=== PATIENT | female | born 1975 | race Caucasian/White ===

== ENCOUNTER → 2020-07-09 | Outpatient (CLI) | payer OTHER ==
[~2020-07-09] MED LIST: LIDOCAINE VISC 2% SOLN 15 ML UDC ONE
== END ==
LOC: WCC 13:02
PROVIDERS: ATTEND Family Medicine Adult Medicine
DX: L95.0 Livedoid vasculitis (principal); S21.209A Unspecified open wound of unspecified back wall of thorax without penetration into thoracic cavity, initial encounter; S81.802A Unspecified open wound, left lower leg, initial encounter; S81.801A Unspecified open wound, right lower leg, initial encounter; K76.9 Liver disease, unspecified; L88 Pyoderma gangrenosum; M32.10 Systemic lupus erythematosus, organ or system involvement unspecified; E66.3 Overweight
CPT/HCPCS: 87071; 87075; 87205

== ENCOUNTER → 2020-07-21 | Outpatient (CLI) | payer OTHER | LOC: WCC 15:30 | PROVIDERS: ATTEND Family Medicine Adult Medicine | DX: I87.311 Chronic venous hypertension (idiopathic) with ulcer of right lower extremity (principal); I87.312 Chronic venous hypertension (idiopathic) with ulcer of left lower extremity; L97.821 Non-pressure chronic ulcer of other part of left lower leg limited to breakdown of skin; L97.811 Non-pressure chronic ulcer of other part of right lower leg limited to breakdown of skin; S81.802A Unspecified open wound, left lower leg, initial encounter; S31.000A Unspecified open wound of lower back and pelvis without penetration into retroperitoneum, initial encounter; I87.2 Venous insufficiency (chronic) (peripheral); R60.0 Localized edema; L95.0 Livedoid vasculitis; K76.9 Liver disease, unspecified; M32.10 Systemic lupus erythematosus, organ or system involvement unspecified; L88 Pyoderma gangrenosum; E66.3 Overweight ==

== ENCOUNTER → 2020-07-30 | Outpatient (CLI) | payer OTHER ==
[~2020-07-30] MED LIST changes: +MINERAL OIL/PETROLAT/GLYCERI 6OZ BTL ONE; +TRIAMCINOLONE ACET 0.1% CREAM 15 GM TUBE ONE
== END ==
LOC: WCC 14:42
PROVIDERS: ATTEND Family Medicine Adult Medicine
DX: I87.311 Chronic venous hypertension (idiopathic) with ulcer of right lower extremity (principal); I87.312 Chronic venous hypertension (idiopathic) with ulcer of left lower extremity; L97.811 Non-pressure chronic ulcer of other part of right lower leg limited to breakdown of skin; L97.821 Non-pressure chronic ulcer of other part of left lower leg limited to breakdown of skin; S31.000A Unspecified open wound of lower back and pelvis without penetration into retroperitoneum, initial encounter; S81.802A Unspecified open wound, left lower leg, initial encounter; I87.2 Venous insufficiency (chronic) (peripheral); R60.0 Localized edema; L95.0 Livedoid vasculitis; L88 Pyoderma gangrenosum; K76.9 Liver disease, unspecified; M32.10 Systemic lupus erythematosus, organ or system involvement unspecified; E66.3 Overweight
CPT/HCPCS: 87071; 87075; 87205

== ENCOUNTER → 2020-08-06 | Outpatient (CLI) | payer OTHER | LOC: WCC 08:26 | PROVIDERS: ATTEND Family Medicine Adult Medicine | DX: I87.311 Chronic venous hypertension (idiopathic) with ulcer of right lower extremity (principal); I87.312 Chronic venous hypertension (idiopathic) with ulcer of left lower extremity; L97.811 Non-pressure chronic ulcer of other part of right lower leg limited to breakdown of skin; L97.821 Non-pressure chronic ulcer of other part of left lower leg limited to breakdown of skin; S81.802A Unspecified open wound, left lower leg, initial encounter; S31.000A Unspecified open wound of lower back and pelvis without penetration into retroperitoneum, initial encounter; R60.0 Localized edema; I87.2 Venous insufficiency (chronic) (peripheral); M32.10 Systemic lupus erythematosus, organ or system involvement unspecified; L95.0 Livedoid vasculitis; L88 Pyoderma gangrenosum; K76.9 Liver disease, unspecified; E66.3 Overweight ==

== ENCOUNTER → 2020-08-13 | Outpatient (CLI) | payer OTHER | LOC: WCC 13:20 | PROVIDERS: ATTEND Family Medicine Adult Medicine | DX: I87.311 Chronic venous hypertension (idiopathic) with ulcer of right lower extremity (principal); I87.312 Chronic venous hypertension (idiopathic) with ulcer of left lower extremity; L97.821 Non-pressure chronic ulcer of other part of left lower leg limited to breakdown of skin; L97.811 Non-pressure chronic ulcer of other part of right lower leg limited to breakdown of skin; S31.000A Unspecified open wound of lower back and pelvis without penetration into retroperitoneum, initial encounter; S81.802A Unspecified open wound, left lower leg, initial encounter; I87.2 Venous insufficiency (chronic) (peripheral); R60.0 Localized edema; L95.0 Livedoid vasculitis; L88 Pyoderma gangrenosum; M32.10 Systemic lupus erythematosus, organ or system involvement unspecified; K76.9 Liver disease, unspecified; E66.3 Overweight ==

== ENCOUNTER → 2020-08-20 | Outpatient (CLI) | payer OTHER | LOC: WCC 09:34 | PROVIDERS: ATTEND Family Medicine Adult Medicine | DX: I87.311 Chronic venous hypertension (idiopathic) with ulcer of right lower extremity (principal); I87.312 Chronic venous hypertension (idiopathic) with ulcer of left lower extremity; L97.811 Non-pressure chronic ulcer of other part of right lower leg limited to breakdown of skin; L97.821 Non-pressure chronic ulcer of other part of left lower leg limited to breakdown of skin; S31.000A Unspecified open wound of lower back and pelvis without penetration into retroperitoneum, initial encounter; S81.802A Unspecified open wound, left lower leg, initial encounter; I87.2 Venous insufficiency (chronic) (peripheral); M32.10 Systemic lupus erythematosus, organ or system involvement unspecified; R60.0 Localized edema; L95.0 Livedoid vasculitis; L88 Pyoderma gangrenosum; E66.3 Overweight; K76.9 Liver disease, unspecified ==

== ENCOUNTER → 2020-08-27 | Outpatient (CLI) | payer OTHER ==
[~2020-08-27] MED LIST changes: +MUPIROCIN 2% OINT 22 GM TUBE ONE
== END ==
LOC: WCC 09:30
PROVIDERS: ATTEND Family Medicine Adult Medicine
DX: I87.311 Chronic venous hypertension (idiopathic) with ulcer of right lower extremity (principal); I87.312 Chronic venous hypertension (idiopathic) with ulcer of left lower extremity; I87.332 Chronic venous hypertension (idiopathic) with ulcer and inflammation of left lower extremity; L97.811 Non-pressure chronic ulcer of other part of right lower leg limited to breakdown of skin; L97.821 Non-pressure chronic ulcer of other part of left lower leg limited to breakdown of skin; L97.321 Non-pressure chronic ulcer of left ankle limited to breakdown of skin; S31.000A Unspecified open wound of lower back and pelvis without penetration into retroperitoneum, initial encounter; S81.802A Unspecified open wound, left lower leg, initial encounter; I87.2 Venous insufficiency (chronic) (peripheral); R60.0 Localized edema; L95.0 Livedoid vasculitis; E66.3 Overweight; K76.9 Liver disease, unspecified; L88 Pyoderma gangrenosum; M32.10 Systemic lupus erythematosus, organ or system involvement unspecified

== ENCOUNTER → 2020-09-03 | Outpatient (CLI) | payer OTHER | LOC: WCC 09:01 | PROVIDERS: ATTEND Family Medicine Adult Medicine | DX: I87.311 Chronic venous hypertension (idiopathic) with ulcer of right lower extremity (principal); I87.312 Chronic venous hypertension (idiopathic) with ulcer of left lower extremity; I87.332 Chronic venous hypertension (idiopathic) with ulcer and inflammation of left lower extremity; L97.811 Non-pressure chronic ulcer of other part of right lower leg limited to breakdown of skin; L97.821 Non-pressure chronic ulcer of other part of left lower leg limited to breakdown of skin; L97.321 Non-pressure chronic ulcer of left ankle limited to breakdown of skin; S31.000A Unspecified open wound of lower back and pelvis without penetration into retroperitoneum, initial encounter; S81.802A Unspecified open wound, left lower leg, initial encounter; R60.0 Localized edema; L95.0 Livedoid vasculitis; K76.9 Liver disease, unspecified; L88 Pyoderma gangrenosum; M32.10 Systemic lupus erythematosus, organ or system involvement unspecified; R26.81 Unsteadiness on feet ==

== ENCOUNTER → 2020-09-15 | Outpatient (CLI) | payer OTHER | LOC: WCC 09:28 | PROVIDERS: ATTEND Family Medicine Adult Medicine | DX: I87.311 Chronic venous hypertension (idiopathic) with ulcer of right lower extremity (principal); I87.312 Chronic venous hypertension (idiopathic) with ulcer of left lower extremity; L97.811 Non-pressure chronic ulcer of other part of right lower leg limited to breakdown of skin; L97.821 Non-pressure chronic ulcer of other part of left lower leg limited to breakdown of skin; S31.000A Unspecified open wound of lower back and pelvis without penetration into retroperitoneum, initial encounter; I87.331 Chronic venous hypertension (idiopathic) with ulcer and inflammation of right lower extremity; I87.2 Venous insufficiency (chronic) (peripheral); I89.0 Lymphedema, not elsewhere classified; R60.0 Localized edema; L95.0 Livedoid vasculitis; K76.9 Liver disease, unspecified; L88 Pyoderma gangrenosum; M32.10 Systemic lupus erythematosus, organ or system involvement unspecified; R26.81 Unsteadiness on feet; E66.3 Overweight | CPT/HCPCS: 87071; 87075; 87205 ==

== ENCOUNTER → 2020-09-29 | Outpatient (CLI) | payer OTHER ==
[~2020-09-29] MED LIST changes: -MINERAL OIL/PETROLAT/GLYCERI 6OZ BTL ONE; -TRIAMCINOLONE ACET 0.1% CREAM 15 GM TUBE ONE
== END ==
LOC: WCC 08:58
PROVIDERS: ATTEND Family Medicine Adult Medicine
DX: I87.311 Chronic venous hypertension (idiopathic) with ulcer of right lower extremity (principal); I87.312 Chronic venous hypertension (idiopathic) with ulcer of left lower extremity; I87.331 Chronic venous hypertension (idiopathic) with ulcer and inflammation of right lower extremity; L97.811 Non-pressure chronic ulcer of other part of right lower leg limited to breakdown of skin; L97.821 Non-pressure chronic ulcer of other part of left lower leg limited to breakdown of skin; S31.000A Unspecified open wound of lower back and pelvis without penetration into retroperitoneum, initial encounter; I89.0 Lymphedema, not elsewhere classified; I87.2 Venous insufficiency (chronic) (peripheral); R60.0 Localized edema; K76.9 Liver disease, unspecified; L95.0 Livedoid vasculitis; M32.10 Systemic lupus erythematosus, organ or system involvement unspecified; L88 Pyoderma gangrenosum; R26.81 Unsteadiness on feet; E66.3 Overweight

== ENCOUNTER → 2020-10-08 | Outpatient (CLI) | payer OTHER | LOC: WCC 08:47 | PROVIDERS: ATTEND Family Medicine Adult Medicine | DX: I87.311 Chronic venous hypertension (idiopathic) with ulcer of right lower extremity (principal); I87.312 Chronic venous hypertension (idiopathic) with ulcer of left lower extremity; I87.331 Chronic venous hypertension (idiopathic) with ulcer and inflammation of right lower extremity; L97.811 Non-pressure chronic ulcer of other part of right lower leg limited to breakdown of skin; L97.521 Non-pressure chronic ulcer of other part of left foot limited to breakdown of skin; L97.821 Non-pressure chronic ulcer of other part of left lower leg limited to breakdown of skin; I89.0 Lymphedema, not elsewhere classified; I87.2 Venous insufficiency (chronic) (peripheral); R60.0 Localized edema; M32.10 Systemic lupus erythematosus, organ or system involvement unspecified; K76.9 Liver disease, unspecified; L95.0 Livedoid vasculitis; L88 Pyoderma gangrenosum; E66.3 Overweight; K64.4 Residual hemorrhoidal skin tags; R26.81 Unsteadiness on feet; S31.000A Unspecified open wound of lower back and pelvis without penetration into retroperitoneum, initial encounter | CPT/HCPCS: 87071; 87075; 87205 ==

== ENCOUNTER → 2020-10-22 | Outpatient (CLI) | payer OTHER | LOC: WCC 09:28 | PROVIDERS: ATTEND Family Medicine Adult Medicine | DX: I87.311 Chronic venous hypertension (idiopathic) with ulcer of right lower extremity (principal); M86.172 Other acute osteomyelitis, left ankle and foot; S31.000A Unspecified open wound of lower back and pelvis without penetration into retroperitoneum, initial encounter; I87.312 Chronic venous hypertension (idiopathic) with ulcer of left lower extremity; I87.331 Chronic venous hypertension (idiopathic) with ulcer and inflammation of right lower extremity; L97.811 Non-pressure chronic ulcer of other part of right lower leg limited to breakdown of skin; L97.821 Non-pressure chronic ulcer of other part of left lower leg limited to breakdown of skin; L97.521 Non-pressure chronic ulcer of other part of left foot limited to breakdown of skin; L03.032 Cellulitis of left toe; I89.0 Lymphedema, not elsewhere classified; I87.2 Venous insufficiency (chronic) (peripheral); M89.9 Disorder of bone, unspecified; L95.0 Livedoid vasculitis; R60.0 Localized edema; E66.3 Overweight; K64.4 Residual hemorrhoidal skin tags; K76.9 Liver disease, unspecified; L88 Pyoderma gangrenosum; M32.10 Systemic lupus erythematosus, organ or system involvement unspecified; R26.81 Unsteadiness on feet ==

== ENCOUNTER → 2020-11-05 | Outpatient (CLI) | payer OTHER | LOC: WCC 11:40 | PROVIDERS: ATTEND Family Medicine Adult Medicine | DX: I87.312 Chronic venous hypertension (idiopathic) with ulcer of left lower extremity (principal); I87.331 Chronic venous hypertension (idiopathic) with ulcer and inflammation of right lower extremity; M86.172 Other acute osteomyelitis, left ankle and foot; L97.821 Non-pressure chronic ulcer of other part of left lower leg limited to breakdown of skin; L97.811 Non-pressure chronic ulcer of other part of right lower leg limited to breakdown of skin; S31.000A Unspecified open wound of lower back and pelvis without penetration into retroperitoneum, initial encounter; L03.032 Cellulitis of left toe; I89.0 Lymphedema, not elsewhere classified; L95.0 Livedoid vasculitis; L88 Pyoderma gangrenosum; M89.9 Disorder of bone, unspecified; R60.0 Localized edema; M32.10 Systemic lupus erythematosus, organ or system involvement unspecified; E66.3 Overweight; I87.2 Venous insufficiency (chronic) (peripheral); I87.311 Chronic venous hypertension (idiopathic) with ulcer of right lower extremity; K76.9 Liver disease, unspecified; K64.4 Residual hemorrhoidal skin tags; R26.81 Unsteadiness on feet ==

== ENCOUNTER → 2020-11-10 | Outpatient (CLI) | payer OTHER | LOC: WCC 09:51 | PROVIDERS: ATTEND Family Medicine Adult Medicine | DX: I87.312 Chronic venous hypertension (idiopathic) with ulcer of left lower extremity (principal); I87.331 Chronic venous hypertension (idiopathic) with ulcer and inflammation of right lower extremity; I87.311 Chronic venous hypertension (idiopathic) with ulcer of right lower extremity; M86.172 Other acute osteomyelitis, left ankle and foot; L97.821 Non-pressure chronic ulcer of other part of left lower leg limited to breakdown of skin; L97.811 Non-pressure chronic ulcer of other part of right lower leg limited to breakdown of skin; S31.000A Unspecified open wound of lower back and pelvis without penetration into retroperitoneum, initial encounter; I87.2 Venous insufficiency (chronic) (peripheral); I89.0 Lymphedema, not elsewhere classified; M32.10 Systemic lupus erythematosus, organ or system involvement unspecified; K76.9 Liver disease, unspecified; M89.9 Disorder of bone, unspecified; L95.0 Livedoid vasculitis; R60.0 Localized edema; E66.3 Overweight; K64.4 Residual hemorrhoidal skin tags; L88 Pyoderma gangrenosum; R26.81 Unsteadiness on feet ==

== ENCOUNTER → 2020-11-19 | Outpatient (CLI) | payer OTHER | LOC: WCC 13:24 | PROVIDERS: ATTEND Family Medicine Adult Medicine | DX: I87.331 Chronic venous hypertension (idiopathic) with ulcer and inflammation of right lower extremity (principal); I87.312 Chronic venous hypertension (idiopathic) with ulcer of left lower extremity; I97.821 Postprocedural cerebrovascular infarction following other surgery; M86.172 Other acute osteomyelitis, left ankle and foot; S31.000A Unspecified open wound of lower back and pelvis without penetration into retroperitoneum, initial encounter; S81.801A Unspecified open wound, right lower leg, initial encounter; L97.811 Non-pressure chronic ulcer of other part of right lower leg limited to breakdown of skin; I87.2 Venous insufficiency (chronic) (peripheral); I89.0 Lymphedema, not elsewhere classified; S80.812A Abrasion, left lower leg, initial encounter; L95.0 Livedoid vasculitis; R60.0 Localized edema; E66.3 Overweight; K64.4 Residual hemorrhoidal skin tags; K76.9 Liver disease, unspecified; L88 Pyoderma gangrenosum; M32.10 Systemic lupus erythematosus, organ or system involvement unspecified; M89.9 Disorder of bone, unspecified; R26.81 Unsteadiness on feet; X58.XXXA Exposure to other specified factors, initial encounter | CPT/HCPCS: 87071; 87075; 87205 ==

== ENCOUNTER → 2020-11-26 | Outpatient (CLI) | payer OTHER | LOC: WCC 09:55 | PROVIDERS: ATTEND Family Medicine Adult Medicine | DX: I87.331 Chronic venous hypertension (idiopathic) with ulcer and inflammation of right lower extremity (principal); L97.811 Non-pressure chronic ulcer of other part of right lower leg limited to breakdown of skin; M86.172 Other acute osteomyelitis, left ankle and foot; S31.000A Unspecified open wound of lower back and pelvis without penetration into retroperitoneum, initial encounter; S81.801A Unspecified open wound, right lower leg, initial encounter; I89.0 Lymphedema, not elsewhere classified; I87.2 Venous insufficiency (chronic) (peripheral); R60.0 Localized edema; S80.812A Abrasion, left lower leg, initial encounter; M89.9 Disorder of bone, unspecified; L95.0 Livedoid vasculitis; L88 Pyoderma gangrenosum; M32.10 Systemic lupus erythematosus, organ or system involvement unspecified; K76.9 Liver disease, unspecified; E66.3 Overweight; K64.4 Residual hemorrhoidal skin tags; R26.81 Unsteadiness on feet; X58.XXXA Exposure to other specified factors, initial encounter ==

== ENCOUNTER → 2020-12-03 | Outpatient (CLI) | payer OTHER | LOC: WCC 10:34 | PROVIDERS: ATTEND Family Medicine Adult Medicine | DX: I87.331 Chronic venous hypertension (idiopathic) with ulcer and inflammation of right lower extremity (principal); L97.811 Non-pressure chronic ulcer of other part of right lower leg limited to breakdown of skin; M86.172 Other acute osteomyelitis, left ankle and foot; S31.000A Unspecified open wound of lower back and pelvis without penetration into retroperitoneum, initial encounter; S81.801A Unspecified open wound, right lower leg, initial encounter; S80.812A Abrasion, left lower leg, initial encounter; I89.0 Lymphedema, not elsewhere classified; I87.2 Venous insufficiency (chronic) (peripheral); R60.0 Localized edema; L95.0 Livedoid vasculitis; E66.3 Overweight; K64.4 Residual hemorrhoidal skin tags; K76.9 Liver disease, unspecified; L88 Pyoderma gangrenosum; M32.10 Systemic lupus erythematosus, organ or system involvement unspecified; M89.9 Disorder of bone, unspecified; R26.81 Unsteadiness on feet; X58.XXXA Exposure to other specified factors, initial encounter ==

== ENCOUNTER → 2020-12-10 | Outpatient (CLI) | payer OTHER | LOC: WCC 01:20 | PROVIDERS: ATTEND Family Medicine Adult Medicine | DX: I87.331 Chronic venous hypertension (idiopathic) with ulcer and inflammation of right lower extremity (principal); M86.172 Other acute osteomyelitis, left ankle and foot; L97.811 Non-pressure chronic ulcer of other part of right lower leg limited to breakdown of skin; S31.000A Unspecified open wound of lower back and pelvis without penetration into retroperitoneum, initial encounter; S81.801A Unspecified open wound, right lower leg, initial encounter; S80.811A Abrasion, right lower leg, initial encounter; I87.2 Venous insufficiency (chronic) (peripheral); I89.0 Lymphedema, not elsewhere classified; R60.0 Localized edema; L95.0 Livedoid vasculitis; K76.9 Liver disease, unspecified; L88 Pyoderma gangrenosum; M32.10 Systemic lupus erythematosus, organ or system involvement unspecified; M89.9 Disorder of bone, unspecified; E66.3 Overweight; K64.4 Residual hemorrhoidal skin tags; R26.81 Unsteadiness on feet; X58.XXXA Exposure to other specified factors, initial encounter ==

== ENCOUNTER → 2020-12-22 | Outpatient (CLI) | payer OTHER | LOC: WCC 10:39 | PROVIDERS: ATTEND Family Medicine Adult Medicine | DX: I87.331 Chronic venous hypertension (idiopathic) with ulcer and inflammation of right lower extremity (principal); M86.172 Other acute osteomyelitis, left ankle and foot; L97.811 Non-pressure chronic ulcer of other part of right lower leg limited to breakdown of skin; S31.000A Unspecified open wound of lower back and pelvis without penetration into retroperitoneum, initial encounter; S81.801A Unspecified open wound, right lower leg, initial encounter; I87.2 Venous insufficiency (chronic) (peripheral); S80.811A Abrasion, right lower leg, initial encounter; R60.0 Localized edema; M32.10 Systemic lupus erythematosus, organ or system involvement unspecified; K76.9 Liver disease, unspecified; M89.9 Disorder of bone, unspecified; L88 Pyoderma gangrenosum; E66.3 Overweight; K64.4 Residual hemorrhoidal skin tags; R26.81 Unsteadiness on feet; X58.XXXA Exposure to other specified factors, initial encounter | CPT/HCPCS: 87071; 87075; 87205 ==

== ENCOUNTER → 2020-12-31 | Outpatient (CLI) | payer OTHER | LOC: WCC 13:52 | PROVIDERS: ATTEND Family Medicine Adult Medicine | DX: I87.331 Chronic venous hypertension (idiopathic) with ulcer and inflammation of right lower extremity (principal); M86.172 Other acute osteomyelitis, left ankle and foot; L97.811 Non-pressure chronic ulcer of other part of right lower leg limited to breakdown of skin; S31.000A Unspecified open wound of lower back and pelvis without penetration into retroperitoneum, initial encounter; S81.801A Unspecified open wound, right lower leg, initial encounter; I87.2 Venous insufficiency (chronic) (peripheral); R60.0 Localized edema; K76.9 Liver disease, unspecified; M32.10 Systemic lupus erythematosus, organ or system involvement unspecified; L88 Pyoderma gangrenosum; M89.9 Disorder of bone, unspecified; N39.0 Urinary tract infection, site not specified; K64.4 Residual hemorrhoidal skin tags; E66.3 Overweight; R26.81 Unsteadiness on feet; X58.XXXA Exposure to other specified factors, initial encounter ==